=== PATIENT | male | born 1945 | race Caucasian/White ===

== ENCOUNTER 2024-03-03 11:16 | Outpatient (CLI) | payer MEDICARE, SELFPAY ==
--- NOTE | ~2024-03-03 | CT_ITS ---
EXAMINATION: CT abdomen pelvis wo con DATE: 03/03/2024 11:34 INDICATION: Flank pain. Prior nephrolithiasis. Right-sided abdominal tenderness. TECHNIQUE: Computed tomography (CT) of the abdomen and pelvis was performed without intravenous contr ast. Automated exposure control and iterative reconstruction technique were employed. The dose-length product was 914.17 mGy-cm. COMPARISON: None FINDINGS: Linear subpleural atelectasis/scarring at the posterior medial right lower lobe. Heart size is normal . No pericardial the pleural effusion. Aortic valve calcification. Cardiac pacemaker leads the right atrial appendage and at the base of the right ventricle just beyond the level of the tricuspid valve. Cholecystectomy clips in the gallbladder fossa with drop clip in the deep pelvis. Liver, spleen, ambriz creas and bilateral adrenal glands are normal. Bilateral renal cysts the largest at the lower pole of the right kidney measuring 5.7 cm. There are small bilateral nonobstructing renal stones the largest at the upper pole of the right kidney measuring 3 mm. No ureteral stones or hydronephrosis. Bladder is normal. Prostatomegaly measuring 4.6 x 4.0 cm. There is moderate colonic diverticulosis with a sig moid predominance. There is no adjacent inflammatory change to suggest diverticulitis. No bowel obs truction. Normal appendix. Moderate-sized fat-containing left inguinal hernia. Aortobiiliac endolumi nal stent grafting. Subtle calcifications along portions of the rim of a 3 x 2 cm macroscopic fat att enuation lesion in the pelvis, likely sequela of chronic fat necrosis or epiploic appendagitis. No fr ee intraperitoneal gas or fluid. No pathologically enlarged abdominal or pelvic lymphadenopathy. L4 a nd L5 laminectomies and partial L2 laminectomy with L4-L5 instrumented posterior spinal fusion with b ilateral vertical xavi and pedicle screw fixation. Spinal cord stimulator at the right buttock with le ads extending into the central canal and cephalad to the level of T6-T7. IMPRESSION: 1. No acute intra-abdominal/pelvic process. 2. Mild bilateral nonobstructing nephrolithiasis. No ureteral stones or hydronephrosis. 3. Diverticulosis. 4. Moderate-sized fat-containing left inguinal hernia. Reviewed, dictated and finalized at location B. [employer] IMPRESSION: 1. No acute intra-abdominal/pelvic process. 2. Mild bilateral nonobstructing nephrolithiasis. No ureteral stones or hydrone phrosis. 3. Diverticulosis. 4. Moderate-sized fat-containing left inguinal hernia.
== END 2024-03-03 11:17 | disposition home or self-care (01) ==
LOC: MICIMG 11:17
PROVIDERS: PCP Urology; Visit Provider Urology
DX: N20.0 Calculus of kidney (principal); K57.90 Diverticulosis of intestine, part unspecified, without perforation or abscess without bleeding; K40.90 Unilateral inguinal hernia, without obstruction or gangrene, not specified as recurrent
CPT/HCPCS: 74176

== ENCOUNTER 2024-04-04 14:16 | Outpatient (CLI) | payer MEDICARE, SELFPAY ==
--- NOTE | ~2024-04-04 | CT_ITS ---
EXAMINATION: CT thoracic spine wo con DATE: 04/04/2024 14:32 INDICATION: Lumbar radiculopathy. Back pain. TECHNIQUE: Computed tomography (CT) of the thoracic spine was performed without intravenous contrast. Automated exposure control and iterative reconstruction technique were employed. The dose-length pro duct was 978.64 mGy-cm. COMPARISON: None FINDINGS: There is 8 degrees levocurvature of thoracic spine. There are changes of anterior fusion pr ocedure from C3 to C7. Vertebral body heights are normal. There is mildly decreased disc height at ma ny levels. There is moderately decreased disc height at T3-T4 and severely decreased disc height at T 4-T5, T5-T6, T6-T7, and T11-T12. There is multilevel facet joint osteoarthritis, severe at a few leve ls. There is multilevel mild neural frontal stenosis on either side. At T11-T12, there is severe left neural foraminal stenosis. There is mild central canal stenosis at T11-T12. There are epidural elect rodes with tips at T7. IMPRESSION: 1. Severe thoracic spondylosis. Reviewed, dictated and finalized at location B. NG OR [employer]
== END 2024-04-04 14:17 | disposition home or self-care (01) ==
LOC: MICIMG 14:17
PROVIDERS: PCP Pain Medicine Pain Medicine; Visit Provider Pain Medicine Pain Medicine
DX: M47.814 Spondylosis without myelopathy or radiculopathy, thoracic region (principal)
CPT/HCPCS: 72128